=== PATIENT | female | born 1985 | race Caucasian/White ===

== ENCOUNTER 2016-09-22 11:49 | Inpatient (IN) | payer BC ==
[~2016-09-22] VITALS: Ht 162.6 cm; Wt 89.4 kg
[2016-09-22] MEDS ORDERED: CEFAZOLIN 2 GM IVPB PREMIX 50 ML IV ONE (13:00)
[2016-09-22] MEDS ORDERED: BUPIVACAINE /PF 0.75% 10 ML VIAL INJ ONE (13:06)
[2016-09-22 13:33] LABS: BASOPHILS % (AUTO) 0.2 % (0.0-2.0); EOSINOPHILS # (AUTO) 0.1 K/uL (0.0-0.4); EOSINOPHILS % (AUTO) 0.8 % (0.0-4.0); HEMATOCRIT 32.7 % (36-48); HEMOGLOBIN 10.4 g/dL (12.0-16.0); LYMPHOCYTES # (AUTO) 1.8 K/uL (1.0-5.5); LYMPHOCYTES % (AUTO) 18.5 % (20.5-51.5); MEAN CORPUSCULAR HEMOGLOBIN 22 pg (27-31); MEAN CORPUSCULAR HGB CONC 32 % (32-36); MEAN CORPUSCULAR VOLUME 69 fL (79.0-98.0); MONOCYTES # (AUTO) 0.5 K/uL (0.0-1.0); MONOCYTES % (AUTO) 5.1 % (1.7-9.3); NEUTROPHILS # (AUTO) 7.6 K/uL (1.8-7.7); NEUTROPHILS % (AUTO) 75.4 % (40.0-70.0); PLATELET COUNT (AUTO) 183 K/uL (130-430); RED BLOOD CELL COUNT(AUTO) 4.72 MIL/uL (4.2-6.2); RED CELL DISTRIBUTION WIDTH 14.3 % (9.0-15.0)
[2016-09-22] MEDS ORDERED: LR 1,000 ML IV SCH ×2 (14:01→15:02)
[2016-09-22 14:03] VITALS: BP_SYST 107
[2016-09-22] MEDS ORDERED: MEPERIDINE HCL/PF 25 MG/ML DISP.SYRIN IVP PRN ×2 (14:15)
[2016-09-22] MEDS ORDERED: MORPHINE SULFATE 10MG/10ML PF AMP SP SCH (14:15)
[2016-09-22] MEDS ORDERED: HYDROmorphone 2 MG/ML VIAL IVP PRN ×2 (14:15)
[2016-09-22] MEDS ORDERED: HYDROmorphone 1 MG INJ. 1 MG/ML AMPUL IVP PRN ×2 (14:15)
[2016-09-22] MEDS ORDERED: ePHEDrine sulfate 50 MG/ML VIAL IVP PRN (14:15)
[2016-09-22] MEDS ORDERED: NALOXONE HCL 0.4 MG/ML AMP (NARCAN) IVP PRN (14:15)
[2016-09-22] MEDS ORDERED: KETOROLAC TROMETHAMINE 30 MG VIAL IVP PRN ×2 (14:15)
[2016-09-22] MEDS ORDERED: NALBUPHINE HCL 10 MG/ML AMP IVP PRN (14:15)
[2016-09-22] MEDS ORDERED: DIPHENHYDRAMINE INJ 50 MG/ML VIAL IVP PRN (14:15)
[2016-09-22] MEDS ORDERED: ONDANSETRON HCL 4 MG/2 ML VIAL IVP PRN ×2 (14:15)
[2016-09-22 14:55] LABS: BILIRUBIN,URINE NEGATIVE (NEGATIVE); BLOOD, URINE NEGATIVE (NEGATIVE); CLARITY/URINE SL HAZY (CLEAR); COLOR,URINE YELLOW (YELLOW); GLUCOSE,URINE NEGATIVE (NEGATIVE); KETONES,URINE NEGATIVE (NEGATIVE); LEUKOCYTE ESTERASE ,URINE NEGATIVE (NEGATIVE); NITRITE, URINE NEGATIVE (NEGATIVE); PH,URINE 5.5 (5.0-8.0); PROTEIN URINE NEGATIVE (NEGATIVE); UROBILINOGEN,URINE 0.2 (0.2-1.0)
[2016-09-22] MEDS ORDERED: OXYTOCIN/NORMAL SALINE 1,000 ML IV ONE (15:02)
[2016-09-22 15:09] LABS: BACTERIA,URINE FEW /HPF (None Seen); MUCUS,URINE 1+ /LPF (None Seen); RBC,URINE NONE SEEN /HPF (0-3)
[2016-09-22] MEDS ORDERED: LANOLIN 7 GM OINT. TP PRN (15:15)
[2016-09-22] MEDS ORDERED: ANUSOL 1 EA SUPP.RECT (PREPARATION H) RC PRN (15:15)
[2016-09-22] MEDS ORDERED: SIMETHICONE 80 MG TAB.CHEW PO PRN (15:15)
[2016-09-22] MEDS ORDERED: DOCUSATE SODIUM 100 MG CAPSULE PO PRN (15:15)
[2016-09-22] MEDS ORDERED: BISACODYL 10 MG/SUPPOSITORY RC PRN (15:15)
[2016-09-22] MEDS ORDERED: SENNOSIDES/DOCUSATE SODIUM 1 TAB TABLET(SENOKOT-S) PO PRN (15:15)
[2016-09-22] MEDS ORDERED: OXYCODONE/ACETAMINOPHEN 5-325 TABLET PO PRN ×2 (15:15)
[2016-09-22] MEDS ORDERED: MORPHINE SULFATE 10 MG/ML VIAL IVP PRN (15:15)
[2016-09-22 15:30] VITALS: BP_SYST 100
[2016-09-22] MEDS ORDERED: TEMAZEPAM 15 MG CAPSULE PO PRN (21:00)
[2016-09-23 06:28] LABS: BASOPHILS % (AUTO) 0.2 % (0.0-2.0); EOSINOPHILS # (AUTO) 0.1 K/uL (0.0-0.4); EOSINOPHILS % (AUTO) 0.5 % (0.0-4.0); HEMOGLOBIN 9.5 g/dL (12.0-16.0); LYMPHOCYTES # (AUTO) 2.1 K/uL (1.0-5.5); LYMPHOCYTES % (AUTO) 16.1 % (20.5-51.5); MEAN CORPUSCULAR HEMOGLOBIN 22 pg (27-31); MEAN CORPUSCULAR HGB CONC 32 % (32-36); MEAN CORPUSCULAR VOLUME 70 fL (79.0-98.0); MONOCYTES # (AUTO) 0.7 K/uL (0.0-1.0); MONOCYTES % (AUTO) 5.2 % (1.7-9.3); NEUTROPHILS # (AUTO) 10.1 K/uL (1.8-7.7); PLATELET COUNT (AUTO) 175 K/uL (130-430); RED BLOOD CELL COUNT(AUTO) 4.31 MIL/uL (4.2-6.2); RED CELL DISTRIBUTION WIDTH 14.4 % (9.0-15.0); WHITE BLOOD COUNT (AUTO) 12.9 K/uL (4.8-10.8)
[2016-09-23] MEDS ORDERED: KETOROLAC TROMETHAMINE 30 MG VIAL IVP ONE (06:30)
[2016-09-23] MEDS ORDERED: KETOROLAC TROMETHAMINE 30 MG VIAL ONE (06:37)
[2016-09-23] MEDS: IBUPROFEN 600 MG TABLET PO SCH ×3 (12:15→23:53)
[2016-09-24] MEDS: IBUPROFEN 600 MG TABLET PO SCH (06:08)
[2016-09-24] MEDS ORDERED: NS IRRIG SOLN 1000 ML IR ONE (11:54)
[2016-09-24] MEDS ORDERED: LR 1,000 ML IV.SOLN IV ONE (11:54)
[2016-09-24] MEDS ORDERED: OXYTOCIN 10 UNIT/ML VIAL IV ONE (11:54)
[2016-09-24] MEDS ORDERED: MORPHINE SULFATE 10MG/10ML PF AMP EP ONE (11:54)
== END 2016-09-24 11:55 | disposition home or self-care (01) | DRG 766 ==
LOC: SPU 11:49
PROVIDERS: ADMIT Obstetrics & Gynecology; ATTEND Obstetrics & Gynecology
PROC: 4A0HXCZ Measurement of Products of Conception, Cardiac Rate, External Approach (ICD-10-PCS; 2016-09-22)
PROC: 10D00Z1 Extraction of Products of Conception, Low, Open Approach (ICD-10-PCS; principal; 2016-09-22 14:00)
DX: O24.420 Gestational diabetes mellitus in childbirth, diet controlled (principal); O34.211 Maternal care for low transverse scar from previous cesarean delivery; Z37.0 Single live birth; Z3A.37 37 weeks gestation of pregnancy
CPT/HCPCS: 36415; 81000-TC; 82947-TC; 82962; 85025; 86592; 86886; 86900; 86901; 94760; J0690; J1885; J2274; J2405; J2590; J3490; J7120

== ENCOUNTER 2023-09-07 11:12 | Emergency (ER) | payer BC, OTHER ==
[~2023-09-07] VITALS: Ht 162.6 cm; Wt 93.9 kg
[~2023-09-07 11:12] MED LIST: IBUP-1969 PO; METH-634 PO; NITR-85 PO
[2023-09-07 11:21] VITALS: BP_SYST 148; PULSE 117; RESP 18; TEMP 98.3; O2SAT 98
[2023-09-07 12:12] LABS: BASOPHILS # (AUTO) 0.1 K/uL (0.0-0.2); BASOPHILS % (AUTO) 0.6 % (0.0-2.0); EOSINOPHILS # (AUTO) 0.3 K/uL (0.0-0.4); HEMOGLOBIN 13.2 g/dL (12.0-16.0); LYMPHOCYTES # (AUTO) 2.2 K/uL (1.0-5.5); MEAN CORPUSCULAR HEMOGLOBIN 23 pg (27-31); MEAN CORPUSCULAR HGB CONC 32 % (32-36); MONOCYTES # (AUTO) 0.6 K/uL (0.0-1.0); MONOCYTES % (AUTO) 6.1 % (1.7-9.3); NEUTROPHILS # (AUTO) 7.1 K/uL (1.8-7.7); NEUTROPHILS % (AUTO) 69.3 % (40.0-70.0); PLATELET COUNT (AUTO) 235 K/uL (130-430); RED BLOOD CELL COUNT(AUTO) 5.77 MIL/uL (4.2-6.2); RED CELL DISTRIBUTION WIDTH 15.2 % (9.0-15.0); WHITE BLOOD COUNT (AUTO) 10.3 K/uL (4.8-10.8)
[2023-09-07 12:14] LABS: MEAN CORPUSCULAR VOLUME 71 fL (79.0-98.0)
[2023-09-07 12:25] LABS: CALCIUM 8.7 mg/dL (8.4-11.0); CREATININE 0.71 mg/dL (0.55-1.30); POTASSIUM 4.3 mmol/L (3.5-5.1)
[2023-09-07 12:30] LABS: HYPOCHROMASIA 1+
[2023-09-07 16:14] VITALS: BP_SYST 148; PULSE 112; RESP 18; TEMP 98.3; O2SAT 98
== END 2023-09-07 16:13 | disposition home or self-care (01) ==
LOC: SED 11:12
DX: I10 Essential (primary) hypertension (principal); R20.0 Anesthesia of skin
CPT/HCPCS: 36415; 70450-TC; 80048; 85025; 99284